=== PATIENT | male | born 1990 | race Caucasian/White ===

== ENCOUNTER 2017-08-08 19:29 | Emergency (ER) | payer OTHER ==
--- NOTE | 2017-08-08 19:33 | ER Report ---
History and Physical Time Seen By MD: 19:32 HPI/ROS CHIEF COMPLAINT: Left thumb laceration HISTORY OF PRESENT ILLNESS: 27-year-old male was bottling Beer when a bottle broke, cutting his left thumb. Patient has a 1.0 cm laceration just proximal to the nail diagonally. Distal tendon function appears intact. Patient unsure of his last tetanus booster. He thinks is greater than 10 years. Patient notes mild 1/10 pain. Bleeding is controlled. Allergies: Coded Allergies: No Known Drug Allergies (Unverified , 08/08/17) Home Meds No Active Prescriptions or Reported Meds Reviewed Nurses Notes: Yes Old Medical Records Reviewed: Yes Constitutional Vital Sign - Last 24 Hours 08/08/17 08/08/17 19:32 20:07 Temp 99.4 Pulse 87 78 Resp 18 16 B/P (MAP) 127/89 127/89 (102) Pulse Ox 93 94 O2 Delivery Room Air Physical Exam General appearance: Alert no distress. Respiratory: Chest is non tender, lungs are clear to auscultation. Cardiac: Regular rate and rhythm Extremities examination of the left hand reveals a neurovascularly intact hand. There is a transverse 1.0 cm laceration just proximal to the nail. DIFFERENTIAL DIAGNOSIS: After history and physical exam differential diagnosis was considered for thumb laceration, thumb foreign body, tendon injury, joint penetration Medical Decision Making ED Course/Re-evaluation ED Course Patient was admitted to an examination room. H&P was done. The differential diagnoses was considered. On conical examination. Patient has a superficial transverse laceration just proximal to his nailbed. Agents requesting sutures being applied. We did discuss Dermabond as an option, but I think since this area is partially involving the knuckle it will likely tear open. So, we elected to proceed with sutures. The laceration was repaired as noted below. Wound care was discussed, suture removal will be in 10 days. Patient was given a tetanus booster to update his tetanus status Procedure: Laceration repair. Verbal consent was obtained from the patient. The 1.0 cm laceration on the left thumb proximal to nail was anesthetized in the usual fashion. The wound was scrubbed, draped and explored to its base with a gloved finger. There were no deep structures involved. No tendon injury was identified. The wound was repaired with 5-0 Prolene 2 sutures. The wound repair was simple. The procedure was performed by myself. Decision to Disposition Date: Aug 08, 2017 Decision to Disposition Time: 19:43 Depart Departure Latest Vital Signs Vital Signs Date Time Temp Pulse Resp B/P (MAP) Pulse Ox O2 Delivery O2 Flow Rate FiO2 08/08/17 20:07 78 16 127/89 (102) 94 08/08/17 19:32 99.4 Room Air Impression: Primary Impression: Laceration of left thumb Condition: Improved Disposition: HOME OR SELF-CARE New Scripts No Active Prescriptions or Reported Meds Patient Instructions: Finger Laceration (ED) Additional Instructions: Perform daily wound care Have your stitches removed in 10 days Problem Qualifiers Primary Impression: Laceration of left thumb Encounter type: initial encounter Damage to nail status: without damage Foreign body presence: without foreign body Qualified Codes: S61.012A - Laceration without foreign body of left thumb without damage to nail, initial encounter DEMETRIS MARTINEZ DO Aug 08, 2017 19:32
[2017-08-08] MEDS ORDERED: DIPHTH/TETANUS/ACEL. PERTUSSIS IM ONLY ONE (19:40)
[2017-08-08 20:07] VITALS: BP 127/89
== END 2017-08-08 20:06 | disposition home or self-care (01) ==
LOC: ER 19:40
DX: S61.012A Laceration without foreign body of left thumb without damage to nail, initial encounter (principal); W25.XXXA Contact with sharp glass, initial encounter
CPT/HCPCS: 90471; 90715; 99283